=== PATIENT | male | born 2000 | race Caucasian/White ===

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

== ENCOUNTER 2023-10-06 23:02 | Emergency (ER) | payer SELFPAY ==
[2023-10-06 23:04] VITALS: BP 121/79; PULSE 105; RESP 17; TEMP 37.4; O2SAT 96; BMI 24.3
--- NOTE | 2023-10-06 23:10 | ED_ITS ---
Discharge Plan Disposition Patient Disposition: Home, Self-Care Prescriptions Prescriptions: No Action albuterol sulfate 8.5 GM HFA aerosol inhaler 1 puff INHALATION Q6H Rx Instructions: administer with spacer Referrals Follow up/Referrals: Edwin Tucker DO [Primary Care Provider] - See instructions Activity Restrictions/Add. Instructions Additional Instructions/Restrictions: Please follow-up with your primary care provider for reevaluation if your symptoms worsen or do not improve. Please use eardrops, 4 drops 4 times per day for 1 week. Please return to the emergency department if you develop any new or worsening symptoms or become concerned for your health. Clinical Impressions Clinical Impression: Otitis externa Qualifiers: Chronicity: acute Laterality: left Discharge ED Provider: Modesto Loaiza Adult HPI General Chief complaint: Ear Stated complaint: left ear hearing loss Time Seen by Provider: 10/06/23 23:10 History of Present Illness HPI narrative: 23-year-old male without significant past medical history presents with left ear pain and decreased hearing. He denies any trauma to the ear, does not think anything flew into it. He reports over a relatively short period of time he developed decreased hearing and pain in the ear. He has had ear infections before but feels like this is different. Related Data Home Medications Medication Instructions Recorded Confirmed albuterol sulfate 90 mcg/actuation 1 puff inhalation Q6H Asthma 10/30/20 10/30/20 aerosol inhaler Allergies Allergy/AdvReac Type Severity Reaction Status Date / Time cefaclor [CEFACLOR] Allergy Intermediate Verified 03/08/19 13:57 ceftriaxone [CEFTRIAXONE] Allergy Intermediate Verified 03/08/19 13:57 montelukast [From Singulair] Allergy Verified 03/08/19 13:57 [facility] Disclaimer: The information contained in this section may have been updated after the patient was seen, as this information can be updated by other users. Medical History (Updated 10/06/23 @ 23:35 by Modesto Loaiza MD) Depression Social History Smoking Status: Never smoker alcohol intake: current alcohol intake frequency: 3 or more drinks per day substance use type: marijuana current occupational status: unemployed Travel in the last 8 weeks: None household members: family housing: house ROS Obtained: Yes All systems reviewed & no additional complaints except as documented Physical Exam General General appearance: alert and in no apparent distress Head Head exam: atraumatic and normocephalic Eye Eye exam: Present normal appearance, PERRL and EOMI ENT ENT exam: Present normal oropharynx, normal external ear exam and other (Right TM and EAC normal. Left EAC erythematous, TM is clear, mildly erythematous with out perforation, no foreign body in the ear. TM not bulging) Neck Neck exam: Present normal inspection and full ROM Chest Chest inspection: Present normal inspection and symmetric chest wall rise; Absent tenderness Respiratory Respiratory exam: Present normal lung sounds bilaterally; Absent respiratory distress Cardiovascular Cardiovascular exam: Present regular rate and normal rhythm Abdominal Exam Abdominal exam: Present soft; Absent distention, tenderness or guarding Extremities Exam Extremities exam: Present normal inspection; Absent edema or joint swelling Back Exam Back exam: Present normal inspection; Absent tenderness Neurological Exam Neurological exam: Present alert and oriented X3; Absent motor sensory deficit Psychiatric Psychiatric exam: Present normal affect and normal mood Skin Skin exam: Present warm, dry and normal color Lymphatic Lymphatic Findings: no adenopathy Medical Decision Making Medical Records Medical records reviewed: Yes I reviewed the patient's medical records. John Inquiry Pt receiving controlled substance: No John was queried for this patient: No Vital Signs: 10/06/23 23:04 10/06/23 23:46 Temperature 99.4 F 99 F Temperature Source Oral Oral Pulse Rate 89 Pulse Rate [Left] 105 H Respiratory Rate 17 18 Blood Pressure 123/72 Blood Pressure [Right Arm] 121/79 Blood Pressure Mean [Right Arm] 93 Blood Pressure Source Automatic Cuff Blood Pressure Source [Right Arm] Automatic Cuff Blood Pressure Position Sitting Blood Pressure Position [Right Arm] Sitting 02 Sat by Pulse Oximetry 96 Oxygen Delivery Method Room Air Room Air Lab Data Lab results reviewed: Yes I reviewed the patient's lab results. Orders (Tests/Meds): ED MEDICATIONS Discontinued Medications Generic Name Dose Route Start Last Admin Trade Name Freq PRN Reason Stop Dose Admin Neomycin/Polymyxin/Hydrocortisone 10 ml 10/06/23 23:33 10/06/23 23:40 [id number] Otic Susp 10ml OT 10/06/23 23:34 10 ml ONCE ONE Administration Medical Decision Narrative: 23-year-old male with history as documented above presents with left ear pain and decreased hearing.. History was obtained interactive discussion with patient. On arrival, patient is [afebrile, hemodynamically stable, satting marv ropriately, alert, oriented x4, GCS 15], moving all extremities spontaneously. Full physical exam performed and significant for left external auditory canal erythema, TM not bulging, no perforation Differential includes but is not limited to otitis media, otitis externa, mastoiditis, ear foreign body,. Exam is most consistent with otitis externa at this time. Will treat with neomycin polymyxin hydrocortisone otic drops. Patient discharged in stable condition with return precautions. Procedures Risk/Benefits of Procedure(s) Were Explained: Yes Critical Care Critical Care Time Critical Care Time: No
[2023-10-06] MEDS: NEOMYCIN-POLYMYXIN-HC OTIC SUSP 10ML 10 ML OT (23:40)
[2023-10-06 23:46] VITALS: BP 123/72; PULSE 89; RESP 18; TEMP 37.2; O2SAT 99
== END 2023-10-06 23:47 | disposition home or self-care (01) ==
PROVIDERS: Emergency Provider Emergency Medicine; PCP Internal Medicine
DX: H60.92 Unspecified otitis externa, left ear (principal); H91.92 Unspecified hearing loss, left ear
CPT/HCPCS: 99283